=== PATIENT | female | born 1955 | race Caucasian/White ===

== ENCOUNTER 2023-03-04 10:30 | Outpatient (OUT) | payer MEDICARE, MEDICAID, SELFPAY ==
--- NOTE | 2023-03-04 10:44 | MR_ITS ---
The [address] [address] Patient Name: JUVENAL OLIVER MRN: [id number] date: 1955 Sex: F Assigned Patient Location: MRI Current Patient Location: MRI Accession/Order Number: [id number] Exam Date: 03/04/2023 10:54 Report Date: 03/06/2023 10:09 At the request of: MARLENE MOE Procedure: MR ankle LT wo con EXAM: MR ankle LT wo con HISTORY: Posterior Tibial Tendonitis M76.822 left ankle pain. COMPARISON: Left ankle MRI 04/03/2022. TECHNIQUE: Multi planar, multisequence MR imaging of the left ankle without contrast. FINDINGS: Bones and cartilage: No acute fracture or malalignment. No focal bone marrow edema. 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 There is also mild osteoarthritic change involving the articulation of the talus with the navicular. Similar findings are seen along the articulation of the calcaneus and cuboid. No articular erosions. No osteochondral abnormality. Muscles and tendons: The Achilles, anterior, medial and lateral tendons about the ankle are intact. There is fusiform thickening of the Achilles tendon measuring approximately 1.0 cm with mild increased signal consistent with tendinosis. Minimal posterior tibial tenosynovitis. Ligaments: The medial and the the medial and lateral ligaments about the ankle are intact. The spring ligament is intact. Fat signal persists within the sinus Tarsi. Extending from the sinus Tarsi dorsally is a 2.3 x 1.1 cm T2 hyperintense lesion likely representing a bursa. Miscellaneous: There is thickening of the plantar aponeurosis likely relating to plantar fasciitis. MR/MR ankle LT wo con IMPRESSION: 1. Mild Achilles tendinosis. 2. Chronic plantar fasciitis. 3. Minimal posterior tibial tenosynovitis. IMPRESSION: 1. Electronically authenticated by: JUWAN REED Date: 03/06/2023 10:09
== END 2023-03-04 10:31 | disposition home or self-care (01) ==
PROVIDERS: PCP Family Medicine; Visit Provider Podiatrist Foot & Ankle Surgery
DX: M76.822 Posterior tibial tendinitis, left leg (principal); M70.72 Other bursitis of hip, left hip; M72.2 Plantar fascial fibromatosis
CPT/HCPCS: 73721

== ENCOUNTER 2023-04-21 14:42 | Emergency (ER) | payer MEDICARE, MEDICAID, SELFPAY ==
[2023-04-21 14:55] VITALS: BP 121/77; PULSE 78; RESP 16; TEMP 37.1; O2SAT 96; BMI 34.9
--- NOTE | 2023-04-21 15:04 | XR_ITS ---
The [address] [address] Patient Name: JUVENAL OLIVER MRN: [id number] date: 1955 Sex: F Assigned Patient Location: ER Current Patient Location: ER Accession/Order Number: [id number] Exam Date: 04/21/2023 15:15 Report Date: 04/21/2023 16:04 At the request of: MELIZA MEZA Procedure: XR ankle LT min 3V EXAM: XR ankle LT min 3V, XR tibia fibula LT 2V HISTORY: fall COMPARISON: None. TECHNIQUE: 3 views of the ankle and 4 views of the lower leg FINDINGS: No fracture, dislocation, subluxation or osseous lesion. Joint spaces are unremarkable for patient's age. XR/XR ankle LT min 3V IMPRESSION: No visualized acute abnormality. Electronically authenticated by: BRIANNE CRISTINA Date: 04/21/2023 16:04
--- NOTE | 2023-04-21 15:04 | XR_ITS ---
The [address] [address] Patient Name: JUVENAL OLIVRE MRN: [id number] date: 1955 Sex: F Assigned Patient Location: ER Current Patient Location: ER Accession/Order Number: [id number] Exam Date: 04/21/2023 15:15 Report Date: 04/21/2023 16:02 At the request of: MELIZA MEZA Procedure: XR hand LT min 3V EXAM: XR hand LT min 3V, XR forearm LT 2V HISTORY: fall COMPARISON: None. TECHNIQUE: 3 views of the hand 2 views of the forearm FINDINGS: No acute fracture, dislocation, subluxation or osseous lesion scattered degenerative changes most pronounced of the first carpometacarpal joint. The elbow joint is unremarkable. XR/XR hand LT min 3V IMPRESSION: No visualized acute abnormality. Electronically authenticated by: BRIANNE CRISTINA Date: 04/21/2023 16:02
--- NOTE | 2023-04-21 15:04 | XR_ITS ---
The [address] [address] Patient Name: JUVENAL OLIVER MRN: [id number] date: 1955 Sex: F Assigned Patient Location: ER Current Patient Location: ER Accession/Order Number: [id number] Exam Date: 04/21/2023 15:15 Report Date: 04/21/2023 16:02 At the request of: MELIZA MEZA Procedure: XR forearm LT 2V EXAM: XR hand LT min 3V, XR forearm LT 2V HISTORY: fall COMPARISON: None. TECHNIQUE: 3 views of the hand 2 views of the forearm FINDINGS: No acute fracture, dislocation, subluxation or osseous lesion scattered degenerative changes most pronounced of the first carpometacarpal joint. The elbow joint is unremarkable. XR/XR forearm LT 2V IMPRESSION: No visualized acute abnormality. Electronically authenticated by: BRIANNE CRISTINA Date: 04/21/2023 16:02
--- NOTE | 2023-04-21 15:04 | XR_ITS ---
The [address] [address] Patient Name: JUVENAL OLIVER MRN: [id number] date: 1955 Sex: F Assigned Patient Location: ER Current Patient Location: ER Accession/Order Number: [id number] Exam Date: 04/21/2023 15:15 Report Date: 04/21/2023 16:04 At the request of: MELIZA MEZA Procedure: XR tibia fibula LT 2V EXAM: XR ankle LT min 3V, XR tibia fibula LT 2V HISTORY: fall COMPARISON: None. TECHNIQUE: 3 views of the ankle and 4 views of the lower leg FINDINGS: No fracture, dislocation, subluxation or osseous lesion. Joint spaces are unremarkable for patient's age. XR/XR tibia fibula LT 2V IMPRESSION: No visualized acute abnormality. Electronically authenticated by: BRIANNE CRISTINA Date: 04/21/2023 16:04
--- NOTE | 2023-04-21 16:33 | ED_ITS ---
HPI - General Adult General Chief complaint: Extremity Injury, Lower Stated complaint: FALL Time Seen by Provider: 04/21/23 15:03 Source: patient Mode of arrival: walk-in History of Present Illness HPI narrative: patient is a 67-year-old female presents the emergency department for the evaluation of injury to the left hand, forearm as well as the left ankle lower leg. Patient states that she was stepping over a gate for her pets that was in a doorway and her home when she caught her leg on the gate and fell on her left side. She denies head injury, loss of consciousness, neck or back pain. she is on no blood thinners. She is able to ambulate. She reports most of her pain in the left hand and wrist. She is not sure if she fell with an extended hand or wrist or if she fell on the side of the arm. She did not take any medications p rior to arrival for her symptoms. Related Data Home Medications Medication Instructions Recorded Confirmed atorvastatin 40 mg tablet 40 mg PO DAILY 04/21/23 04/21/23 buspirone 30 mg tablet 30 mg PO BID 04/21/23 04/21/23 furosemide 40 mg tablet 40 mg PO BID 04/21/23 04/21/23 gabapentin 300 mg capsule 300 mg PO BID 04/21/23 04/21/23 gabapentin 300 mg capsule 600 mg PO QPM 04/21/23 04/21/23 mirabegron 50 mg tablet,extended 50 mg PO QAM 04/21/23 04/21/23 release 24 hr (Myrbetriq) paroxetine HCl 30 mg tablet 30 mg PO DAILY 04/21/23 04/21/23 trazodone 100 mg tablet 100 mg PO QPM 04/21/23 04/21/23 Previous Rx's Medication Instructions Recorded ketorolac 10 mg tablet 10 mg PO TID PRN pain #10 tabs 04/21/23 methocarbamol 750 mg tablet 750 mg PO TID PRN pain #20 tabs 04/21/23 Allergies Allergy/AdvReac Type Severity Reaction Status Date / Time morphine Allergy Severe Verified 04/21/23 14:55 phenytoin [From Dilantin] Allergy Severe Verified 04/21/23 14:55 topiramate [From Topamax] Allergy Severe Verified 04/21/23 14:55 Review of Systems ROS Constitutional Denies: fever or chills Ears, nose, mouth, and throat Denies: throat pain or neck pain Cardiovascular Denies: chest pain Respiratory Denies: shortness of breath or cough Gastrointestinal Denies: nausea or vomiting Musculoskeletal Reports: extremity pain and joint pain; Denies: back pain or neck pain Integumentary/Breast Denies: rash Neurological Denies: headache Endocrine Denies: excessive urination Exam Narrative Exam Narrative: Gen.: Awake, alert, in no distress Head: Normocephalic, atraumatic ENT: Moist mucous membranes Neck: no bony point tenderness of the C-spine, no evidence of injury to the head or neck Respiratory: No respiratory distress Extremities: patient with diffuse pain of the left hand, left wrist. 2+ left radial pulse. Limited movement of the fingers of the left hand and at the left wrist due to pain. No appreciable swelling, ecchymosis or obvious deformities of the left upper extremity. No bony tenderness of the left elbow, left humerus or left shoulder. Minimal edema noted of the left ankle with no bony point tenderness or obvious deformity. No bony tenderness of the left anterior tibia or knee. Psych: Normal mood and affect Neuro: No focal neuro deficit Skin: Warm, dry, intact Constitutional Vital Signs, click to edit/add: Last Vital Signs Temp 98.8 F 04/21/23 14:55 Pulse 78 04/21/23 14:55 Resp 16 04/21/23 14:55 BP 121/77 04/21/23 14:55 Pulse Ox 96 04/21/23 14:55 O2 Del Method Room Air 04/21/23 14:55 Course Vital Signs Vital signs: Vital Signs Temperature 98.8 F 04/21/23 14:55 Pulse Rate 78 04/21/23 14:55 Respiratory Rate 16 04/21/23 14:55 Blood Pressure 121/77 04/21/23 14:55 Pulse Oximetry 96 04/21/23 14:55 Oxygen Delivery Method Room Air 04/21/23 14:55 Temperature 98.8 F 04/21/23 14:55 Pulse Rate 78 04/21/23 14:55 Respiratory Rate 16 04/21/23 14:55 Blood Pressure 121/77 04/21/23 14:55 Pulse Oximetry 96 04/21/23 14:55 Oxygen Delivery Method Room Air 04/21/23 14:55 Medical Decision Making MDM Narrative Medical decision making narrative: patient had x-rays of the left hand, left forearm, left tibia-fibula and left ankle with no evidence of acute process. These were reviewed by the radiologist and patient was given copies of all of her imaging studies. She was placed in a metal forearm splint with Dariel wrap for the left upper extremity and remains neurovascularly intact. Rest, ice, elevate. She is started on NSAIDs and muscle relaxants for home. She is currently on gabapentin. Follow-up with PCP and return to the emergency department if symptoms change or worsen. Medical Records Medical records reviewed: Yes I reviewed the patient's medical records Imaging Data XR hand: Attestation: I have reviewed the pertinent imaging results. Radiologist's impression: Procedure: XR hand LT min 3V EXAM: XR hand LT min 3V, XR forearm LT 2V HISTORY: fall COMPARISON: None. TECHNIQUE: 3 views of the hand 2 views of the forearm FINDINGS: No acute fracture, dislocation, subluxation or osseous lesion scattered degenerative changes most pronounced of the first carpometacarpal joint. The elbow joint is unremarkable. IMPRESSION: No visualized acute abnormality. Electronically authenticated by: BRIANNE CRISTINA Date: 04/21/2023 16:02 XR forearm: Attestation: I have reviewed the pertinent imaging results. Radiologist's impression: Procedure: XR forearm LT 2V EXAM: XR hand LT min 3V, XR forearm LT 2V HISTORY: fall COMPARISON: None. TECHNIQUE: 3 views of the hand 2 views of the forearm FINDINGS: No acute fracture, dislocation, subluxation or osseous lesion scattered degenerative changes most pronounced of the first carpometacarpal joint. The elbow joint is unremarkable. IMPRESSION: No visualized acute abnormality. Electronically authenticated by: BRIANNE CRISTINA Date: 04/21/2023 16:02 XR left ankle: Attestation: I have reviewed the pertinent imaging results. Radiologist's impression: Procedure: XR ankle LT min 3V EXAM: XR ankle LT min 3V, XR tibia fibula LT 2V HISTORY: fall COMPARISON: None. TECHNIQUE: 3 views of the ankle and 4 views of the lower leg FINDINGS: No fracture, dislocation, subluxation or osseous lesion. Joint spaces are unremarkable for patient's age. IMPRESSION: No visualized acute abnormality. Electronically authenticated by: BRIANNE CRISTINA Date: 04/21/2023 16:04 XR tib/fib: Attestation: I have reviewed the pertinent imaging results. Radiologist's impression: Procedure: XR tibia fibula LT 2V EXAM: XR ankle LT min 3V, XR tibia fibula LT 2V HISTORY: fall COMPARISON: None. TECHNIQUE: 3 views of the ankle and 4 views of the lower leg FINDINGS: No fracture, dislocation, subluxation or osseous lesion. Joint spaces are unremarkable for patient's age. IMPRESSION: No visualized acute abnormality. Electronically authenticated by: BRIANNE CRISTINA Date: 04/21/2023 16:04 Discharge Plan Discharge Chief Complaint: Extremity Injury, Lower Clinical Impression: Contusion of left hand, Left ankle sprain, Sprain of forearm, left Patient Disposition: Home, Self-Care Time of Disposition Decision: 16:31 Condition: Good Prescriptions / Home Meds: New ketorolac 10 mg tablet 10 mg PO TID PRN (Reason: pain) Qty: 10 0RF methocarbamol 750 mg tablet 750 mg PO TID PRN (Reason: pain) Qty: 20 0RF No Action atorvastatin 40 mg tablet 40 mg PO DAILY buspirone 30 mg tablet 30 mg PO BID furosemide 40 mg tablet 40 mg PO BID gabapentin 300 mg capsule 300 mg PO BID gabapentin 300 mg capsule 600 mg PO QPM Myrbetriq 50 mg tablet extended release 24 hr 50 mg PO QAM paroxetine HCl 30 mg tablet 30 mg PO DAILY trazodone 100 mg tablet 100 mg PO QPM Instructions: Ankle Sprain (ED), Contusion in Adults (ED), Wrist Sprain (ED) Stand Alone Forms: Portal Instructions Referrals: YVES BACA [Primary Care Provider] - 1 week
== END 2023-04-21 16:44 | disposition home or self-care (01) ==
PROVIDERS: Emergency Provider Emergency Medicine Emergency Medical Services; PCP Family Medicine
DX: S93.402A Sprain of unspecified ligament of left ankle, initial encounter (principal); S60.222A Contusion of left hand, initial encounter; S59.812A Other specified injuries left forearm, initial encounter; W18.39XA Other fall on same level, initial encounter; Z79.899 Other long term (current) drug therapy
CPT/HCPCS: 73090; 73130; 73590; 73610; 99284

== ENCOUNTER 2023-05-15 08:52 | Outpatient (OUT) | payer MEDICARE, MEDICAID, SELFPAY ==
--- NOTE | 2023-05-15 09:03 | XR_ITS ---
The [address] [address] Patient Name: JUVENAL OLIVER MRN: [id number] date: 1955 Sex: F Assigned Patient Location: [facility] Current Patient Location: [facility] Accession/Order Number: [id number] Exam Date: 05/15/2023 09:10 Report Date: 05/15/2023 15:29 At the request of: MARIE BERMAN Procedure: XR ankle LT min 3V XR ankle LT min 3V, 05/15/2023 9:10 AM EDT, [place]001 INDICATION: Injury Left Ankle S99.912D COMPARISON: Radiographs from 04/21/2023 TECHNIQUE: AP, lateral and oblique views of the ankle are submitted. FINDINGS: The bones appear well mineralized. No acute fracture or subluxation is identified. The joint spaces are maintained. No destructive osseous process is identified. Medial and lateral soft tissue swelling is again noted. XR/XR ankle LT min 3V IMPRESSION: Unremarkable exam. No acute osseous injury with intact ankle mortise. Electronically authenticated by: DARRIAN BENNETT Date: 05/15/2023 15:29
--- NOTE | 2023-05-15 09:03 | XR_ITS ---
The [place] [id number] Patient Name: JUVENAL OLIVER MRN: [id number] date: 1955 Sex: F Assigned Patient Location: [facility] Current Patient Location: [facility] Accession/Order Number: [id number] Exam Date: 05/15/2023 09:10 Report Date: 05/15/2023 15:27 At the request of: MARIE BERMAN Procedure: XR wrist LT min 3V XR wrist LT min 3V, 05/15/2023 9:10 AM EDT, [place]001 INDICATION: Injury Of Left Wrist S69.92XD COMPARISON: [Radiographs from 04/21/2023. TECHNIQUE: 3 images are submitted. FINDINGS: The bones appear well mineralized. No acute fracture or subluxation is identified. Degenerative change is again noted at the first carpal metacarpal joint. No destructive osseous process is identified. The visualized soft tissues appear unremarkable. XR/XR wrist LT min 3V IMPRESSION: No acute traumatic abnormality or malalignment. Electronically authenticated by: DARRIAN BENNETT Date: 05/15/2023 15:27
== END 2023-05-15 08:53 | disposition home or self-care (01) ==
LOC: RAD 08:54
PROVIDERS: PCP Family Medicine; Visit Provider Physician Assistant
DX: S99.912D Unspecified injury of left ankle, subsequent encounter (principal); S69.92XD Unspecified injury of left wrist, hand and finger(s), subsequent encounter
CPT/HCPCS: 73110; 73610

== ENCOUNTER 2023-05-27 17:12 | Outpatient (OUT) | payer MEDICARE, MEDICAID, SELFPAY ==
--- NOTE | 2023-05-27 | XR_ITS ---
[address] [address] Patient Name: JUVENAL OLIVER MRN: [id number] date: 1955 Sex: F Assigned Patient Location: [facility] Current Patient Location: [facility] Accession/Order Number: [id number] Exam Date: 05/27/2023 16:10 Report Date: 05/27/2023 16:35 At the request of: MARLENE MOE Procedure: XR ankle ANABEL min 3V STUDY: XR ankle ANABEL min 3V, XR foot ANABEL min 3V, [id number], [id number] HISTORY: BILATERAL ANKLE PAIN AFTER FALL COMPARISON: Left ankle x-rays 05/15/2023 and bilateral foot x-rays 12/17/2022. FINDINGS: Right foot and ankle: No acute fracture, dislocation, or suspicious osseous lesion. Moderate Achilles insertional enthesopathy. Moderate osteoarthritis of the subtalar joint. No lucent lesion of the talar dome. 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 Mild osteoarthritis at the first through fourth tarsometatarsal joints. Left foot and ankle: No acute fracture, dislocation, or suspicious osseous lesion. Mild hallux valgus. Status post bunionectomy. Moderate osteoarthritis of the first metatarsophalangeal joint. Minimal osteoarthritis at the first tarsometatarsal joint. Moderate Achilles insertional enthesopathy. IMPRESSION: No new or worsening osseous abnormality. Electronically authenticated by: MARANDA LAMAR Date: 05/27/2023 16:35
--- NOTE | 2023-05-27 | XR_ITS ---
[address] [address] Patient Name: JUVENAL OLIVER MRN: [id number] date: 1955 Sex: F Assigned Patient Location: [facility] Current Patient Location: [facility] Accession/Order Number: [id number] Exam Date: 05/27/2023 16:10 Report Date: 05/27/2023 16:35 At the request of: MARLENE MOE Procedure: XR foot ANABEL min 3V STUDY: XR ankle ANABEL min 3V, XR foot ANABEL min 3V, [id number], [id number] HISTORY: BILATERAL ANKLE PAIN AFTER FALL COMPARISON: Left ankle x-rays 05/15/2023 and bilateral foot x-rays 12/17/2022. FINDINGS: Right foot and ankle: No acute fracture, dislocation, or suspicious osseous lesion. Moderate Achilles insertional enthesopathy. Moderate osteoarthritis of the subtalar joint. No lucent lesion of the talar dome. 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 Mild osteoarthritis at the first through fourth tarsometatarsal joints. Left foot and ankle: No acute fracture, dislocation, or suspicious osseous lesion. Mild hallux valgus. Status post bunionectomy. Moderate osteoarthritis of the first metatarsophalangeal joint. Minimal osteoarthritis at the first tarsometatarsal joint. Moderate Achilles insertional enthesopathy. IMPRESSION: No new or worsening osseous abnormality. Electronically authenticated by: MARANDA LAMAR Date: 05/27/2023 16:35
== END 2023-05-27 17:13 | disposition home or self-care (01) ==
LOC: RAD 17:12
PROVIDERS: PCP Family Medicine; Visit Provider Podiatrist Foot & Ankle Surgery
DX: M20.12 Hallux valgus (acquired), left foot (principal); M76.821 Posterior tibial tendinitis, right leg; M19.072 Primary osteoarthritis, left ankle and foot; M19.071 Primary osteoarthritis, right ankle and foot; M24.674 Ankylosis, right foot
CPT/HCPCS: 73610; 73630

== ENCOUNTER 2023-12-23 08:38 | Outpatient (OUT) | payer MEDICARE, SELFPAY ==
--- NOTE | 2023-12-23 | XR_ITS ---
The [address] [address] Patient Name: JUVENAL OLIVER MRN: [id number] date: 1955 Sex: F Assigned Patient Location: Current Patient Location: Accession/Order Number: [id number] Exam Date: 12/23/2023 14:12 Report Date: 12/23/2023 15:01 At the request of: MARLENE MOE Procedure: XR ankle ANABEL min 3V EXAMINATION: XR ankle ANABEL min 3V, XR foot ANABEL min 3V HISTORY: BILATERAL ANKLE PAIN COMPARISON: 05/27/2023 FINDINGS: RIGHT FINDINGS: BONES: No acute fracture or dislocation. Remote fusion of the first metatarsal-phalangeal joint with removed hardware. Enthesopathic spurring of the calcaneus. Stable degenerative changes with joint space narrowing and marginal osteophyte formation SOFT TISSUES: Negative. No visible soft tissue swelling. OTHER: Negative. LEFT FINDINGS: BONES: No acute fracture or dislocation. Moderate to severe degenerative changes of the first metatarsal-phalangeal joint with hallux valgus deformity. Enthesopathic spurring of the calcaneus. Stable degenerative changes with joint space narrowing and marginal osteophyte formation SOFT TISSUES: Negative. No visible soft tissue swelling. OTHER: Negative. XR/XR ankle ANABEL min 3V IMPRESSION: RIGHT CONCLUSION: Stable first metatarsal-phalangeal joint fusion and degenerative changes LEFT CONCLUSION: Stable degenerative changes Electronically authenticated by: BRIANNE PATEL Date: 12/23/2023 15:01
--- NOTE | 2023-12-23 | XR_ITS ---
The [address] [address] Patient Name: JUVENAL OLIVER MRN: [id number] date: 1955 Sex: F Assigned Patient Location: Current Patient Location: Accession/Order Number: [id number] Exam Date: 12/23/2023 14:12 Report Date: 12/23/2023 15:01 At the request of: MARLENE MOE Procedure: XR foot ANABEL min 3V EXAMINATION: XR ankle ANABEL min 3V, XR foot ANABEL min 3V HISTORY: BILATERAL ANKLE PAIN COMPARISON: 05/27/2023 FINDINGS: RIGHT FINDINGS: BONES: No acute fracture or dislocation. Remote fusion of the first metatarsal-phalangeal joint with removed hardware. Enthesopathic spurring of the calcaneus. Stable degenerative changes with joint space narrowing and marginal osteophyte formation SOFT TISSUES: Negative. No visible soft tissue swelling. OTHER: Negative. LEFT FINDINGS: BONES: No acute fracture or dislocation. Moderate to severe degenerative changes of the first metatarsal-phalangeal joint with hallux valgus deformity. Enthesopathic spurring of the calcaneus. Stable degenerative changes with joint space narrowing and marginal osteophyte formation SOFT TISSUES: Negative. No visible soft tissue swelling. OTHER: Negative. XR/XR foot ANABEL min 3V IMPRESSION: RIGHT CONCLUSION: Stable first metatarsal-phalangeal joint fusion and degenerative changes LEFT CONCLUSION: Stable degenerative changes Electronically authenticated by: BRIANNE PATEL Date: 12/23/2023 15:01
== END 2023-12-23 08:39 | disposition home or self-care (01) ==
LOC: EC 08:39
PROVIDERS: PCP Family Medicine; Visit Provider Podiatrist Foot & Ankle Surgery
DX: M20.12 Hallux valgus (acquired), left foot (principal); M20.11 Hallux valgus (acquired), right foot; M76.822 Posterior tibial tendinitis, left leg; M76.821 Posterior tibial tendinitis, right leg
CPT/HCPCS: 73610; 73630

== ENCOUNTER 2024-04-27 13:42 | Outpatient (OUT) | payer MEDICARE, SELFPAY ==
--- NOTE | 2024-04-27 | XR_ITS ---
[address] [address] Patient Name: JUVENAL OLIVER MRN: [id number] date: 1955 Sex: F Assigned Patient Location: Current Patient Location: Accession/Order Number: [id number] Exam Date: 04/27/2024 13:50 Report Date: 04/27/2024 15:56 At the request of: MARLENE MOE Procedure: XR foot ANABEL min 3V EXAMINATION: XR foot ANABEL min 3V HISTORY: BILATERAL FOOT PAIN COMPARISON: 08/24/2023 FINDINGS: RIGHT FINDINGS: BONES: No acute fracture or dislocation. Stable fusion the first metatarsal-phalangeal joint mild degenerative change. Moderate enthesopathic spurring of the calcaneus SOFT TISSUES: Negative. No visible soft tissue swelling. OTHER: Negative. LEFT FINDINGS: BONES: No acute fracture or dislocation . Moderate hallux valgus with first metatarsal-phalangeal joint osteoarthritis. Mild enthesopathic spurring of the calcaneus SOFT TISSUES: Negative. No visible soft tissue swelling. OTHER: Negative. XR/XR foot ANABEL min 3V IMPRESSION: RIGHT CONCLUSION: Stable first metatarsal-phalangeal joint fusion LEFT CONCLUSION: Stable hallux valgus with first metatarsal-phalangeal joint osteoarthritis Electronically authenticated by: BRIANNE PATEL Date: 04/27/2024 15:56
== END 2024-04-27 13:43 | disposition home or self-care (01) ==
LOC: EC 13:42
PROVIDERS: PCP Family Medicine; Visit Provider Podiatrist Foot & Ankle Surgery
DX: M79.671 Pain in right foot (principal); M79.672 Pain in left foot; M24.674 Ankylosis, right foot; M20.12 Hallux valgus (acquired), left foot
CPT/HCPCS: 73630

== ENCOUNTER 2024-06-20 13:25 | Outpatient (OUT) | payer MEDICARE, MEDICAID, SELFPAY ==
--- NOTE | 2024-06-20 13:27 | MR_ITS ---
The [address] [address] Patient Name: JUVENAL OLIVER MRN: [id number] date: 1955 Sex: F Assigned Patient Location: MRI Current Patient Location: MRI Accession/Order Number: [id number] Exam Date: 06/20/2024 13:40 Report Date: 06/21/2024 16:43 At the request of: MARLENE MOE Procedure: MR ankle RT wo con EXAM: MR ankle RT wo con HISTORY: Posterior Tibial Tendonitis Disorder COMPARISON: 04/27/2024 TECHNIQUE: MRI images obtained with multiple sequences. MRI of the right ankle without contrast. Sequences obtained by standard department protocol. FINDINGS: Extensor, flexor and peroneal tendons are intact. Anterior talofibular, posterior talofibular and calcaneofibular ligaments are intact. Anterior and posterior syndesmotic ligaments are intact. Deltoid ligament fibers are intact. No significant degeneration at the ankle joint or subtalar joint. Mild degeneration of the mid foot. Achilles tendon thickening, consistent with Achilles tendinopathy. Plantar fascia is intact. Small ankle joint effusion. No acute fractures. Bone anchors of the distal fibula, consistent with prior surgical repair. MR/MR ankle RT wo con IMPRESSION: 1. Extensor, flexor and peroneal tendons are intact. 2. No acute ligamentous abnormality. 3. No significant degeneration of the ankle joint, hindfoot or midfoot. 4. No acute fractures. Electronically authenticated by: SEDRICK ALVAREZ Date: 06/21/2024 16:43
== END 2024-06-20 13:26 | disposition home or self-care (01) ==
LOC: MRI 13:25
PROVIDERS: PCP Family Medicine; Visit Provider Podiatrist Foot & Ankle Surgery
DX: M76.821 Posterior tibial tendinitis, right leg (principal)
CPT/HCPCS: 73721